=== PATIENT | female | born 1945 | race Asian ===

== ENCOUNTER → 2017-09-03 | Outpatient (CLI) | payer MEDICARE, BC | END | disposition home or self-care (01) | LOC: CFH 11:27 | PROVIDERS: ATTEND Family Medicine | DX: Z13.820 Encounter for screening for osteoporosis (principal); M85.88 Other specified disorders of bone density and structure, other site | CPT/HCPCS: 77080 ==

== ENCOUNTER → 2017-10-21 | Outpatient (CLI) | payer MEDICARE, BC | END | disposition home or self-care (01) | LOC: CFH 10:25 | PROVIDERS: ATTEND Family Medicine | DX: Z12.31 Encounter for screening mammogram for malignant neoplasm of breast (principal) | CPT/HCPCS: 77063; G0202 ==

== ENCOUNTER → 2018-11-07 | Outpatient (CLI) | payer MEDICARE, BC | END | disposition home or self-care (01) | LOC: CFH 14:35 | PROVIDERS: ATTEND Nurse Practitioner Family | DX: G31.9 Degenerative disease of nervous system, unspecified (principal); R26.89 Other abnormalities of gait and mobility; R09.89 Other specified symptoms and signs involving the circulatory and respiratory systems | CPT/HCPCS: 70551; 93880 ==